=== PATIENT | male | born 1980 | race Caucasian/White ===

== ENCOUNTER 2020-04-29 22:02 | Emergency (ER) | payer OTHER ==
[2020-04-29 22:18] VITALS: BP 124/81; PULSE 73; TEMP 97.9; BMI 29.9
== END 2020-04-29 23:03 | disposition home or self-care (01) ==
LOC: FER 22:02
DX: T50.905A Adverse effect of unspecified drugs, medicaments and biological substances, initial encounter (principal)
CPT/HCPCS: 99282-25